=== PATIENT | female | born 1980 | race Caucasian/White ===

== ENCOUNTER 2019-11-30 15:39 | Emergency (ER) | payer OTHER ==
[~2019-11-30] VITALS: Ht 165.1 cm; Wt 113.4 kg
[2019-11-30 16:37] LABS: ABSOLUTE NEUTROPHILS 8.5 thou/uL (1.4-8.2); EOSINOPHILS 2.5 % (0.0-3.0); HEMATOCRIT 40.9 % (37.0-47.0); HEMOGLOBIN 13.4 gm/dL (12.0-15.0); LYMPHOCYTES 23.2 % (24.0-44.0); MCHC 32.8 g/dL (28.0-37.0); MONOCYTES 6.4 % (1.0-8.0); PLATELET COUNT 462 thou/uL (150-400); POLYS 66.9 % (36.0-66.0); RBC 4.98 mil/uL (4.20-5.00); RDW 13.8 % (10.5-14.5); WBC 12.6 thou/uL (4.0-11.0)
[2019-11-30 16:43] LABS: ANION GAP 12 mmol/L (7-16); BUN 10 mg/dL (7-18); CALCIUM 9.1 mg/dL (8.5-10.1); CHLORIDE 104 mmol/L (98-107); CO2 24 mmol/L (21-32); CREATININE 0.7 mg/dL (0.6-1.0); GLUCOSE 116 mg/dL (74-106); POTASSIUM 3.4 mmol/L (3.5-5.1); SODIUM 140 mmol/L (136-145)
[2019-11-30 16:52] LABS: ALBUMIN 3.6 g/dL (3.4-5.0); DIRECT BILIRUBIN < 0.1 mg/dL (<0.1-0.2); LIPASE 120 U/L (73-393); SGOT 37 U/L (15-37); SGPT 46 U/L (30-65); TOTAL BILIRUBIN 0.2 mg/dL (0.2-1.0); TOTAL PROTEIN 8.1 g/dL (6.4-8.2); TROPONIN-I <0.06 ng/mL (<0.06)
[2019-11-30] MEDS ORDERED: ZYRTEC10 M5 PO (17:34)
[2019-11-30 17:59] LABS: URINE BILIRUBIN NEGATIVE (Negative); URINE BLOOD TRACE (Negative); URINE CLARITY CLEAR; URINE COLOR YELLOW; URINE GLUCOSE-RANDOM* NEGATIVE (Negative); URINE KETONES NEGATIVE (Negative); URINE LEUKOCYTES-REFLEX NEGATIVE (Negative); URINE NITRITE-REFLEX NEGATIVE (Negative); URINE PROTEIN (DIPSTICK) TRACE (Negative); URINE SPECIFIC GRAVITY 1.015 (1.005-1.035); URINE UROBILINOGEN 0.2 E.U./dl (0.2-1.0)
[2019-11-30 19:16] VITALS: BP 177/119
--- NOTE | 2019-12-01 07:32 | EKG ---
[facility] [place] [address] ELECTROCARDIOGRAM REPORT Name: ANCELMO NOONAN Room #: DEP [facility]#: [id number] Admission: 11/30/19 Attend Phys: Discharge: 11/30/19 Date of : 82 Report #: [id number] THIS REPORT FOR: cc: ALICE Thakur family physician/PCP ALICE Thakur family physician/PCP Jamal Laughlin MD [facility] THIS REPORT FOR: //name// [facility] ED Test Date: 2019-11-30 Test Time: 15:47:32 Pat Name: ANCELMO NOONAN Department: Room: Gender: F [employer] Graph[employer]er: RY : 1980 Requested By: Jin Lyons Order Number: [id number] MD: Jamal Laughlin Measurements Intervals [place] Rate: 120 P: 18 LA: 154 QRS: -17 QRSD: 94 T: 57 QT: 337 QTc: 477 Interpretive Statements Sinus tachycardia Probable left atrial enlargement Borderline left axis deviation Low voltage, precordial leads RSR' in V1 or V2, probably normal variant Consider anterior infarct Baseline wander in lead(s) V1,V3,V4,V5,V6 No previous ECG available for comparison Electronically Signed On 12-01-2019 7:32:01 CDT by Jamal Laughlin [email or web address] <ELECTRONICALLY SIGNED> By: Jamal Laughlin MD, FACC 12/01/19 0732 [id number] Jamal Laughlin MD, FAC /EPI
== END 2019-11-30 19:17 | disposition home or self-care (01) ==
LOC: ER 15:39
PROVIDERS: Nurse Practitioner
DX: F41.9 Anxiety disorder, unspecified (principal); R06.00 Dyspnea, unspecified; Z79.899 Other long term (current) drug therapy; Z88.0 Allergy status to penicillin